=== PATIENT | female | born 1985 | race Caucasian/White ===

== ENCOUNTER → 2016-07-15 | Outpatient (CLI) | payer OTHER ==
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
--- NOTE | ~2016-07-15 | EE ---
Unit #: [id number] #: [id number] Patient: CAROLE BARROS [id number] [address] [address] [id number] O MR#: [id number] NAME: CAROLE BARROS : 1985 SEX: F STUDY DATE/TIME: 07/15/2016 UNIT: CEEG ROOM: STUDY DESCRIPTION: EEG Attending Physician: Jhon Noriega II., M.D. NEURODIAGNOSTICS REPORT EXAM EEG REASON FOR STUDY Seizures. Slidely TECHNICAL INFORMATION This is a routine EEG performed using the standard International 10-20 System of electrode placement. Photic stimulation was performed. Hyperventilation was also performed. REPORT Throughout the entire study, the best background rhythm seen is approximately 10 Hz. This rhythm is seen in both posterior head regions symmetrically and does attenuate to eye opening and closure. Photic stimulation was performed which did not elicit any epileptiform abnormalities. Hyperventilation was also performed which failed to reproduce any abnormal buildup. Throughout the entire study, there was no electrographic seizures recorded nor does there appear to be any clear independent epileptiform potential. There does appear to be some drowsiness. However, no sleep was recorded. INTERPRETATION This is a normal awake EEG. A normal EEG does not rule out the possibility of a seizure disorder. Clinical correlation is advised. Dictated by... Jhon Noriega II., M.D. GWS/gloria TD: 07/26/2016 09:14 JOB #: [id number] Unit #: [id number] #: [id number] Patient: CAROLE BARROS NEURODIAGNOSTICS REPORT Page 1 of 1 X NEURODIAGNOSTICS REPORT
== END | disposition home or self-care (01) ==
LOC: CEEG 07:35
DX: G40.909 Epilepsy, unspecified, not intractable, without status epilepticus (principal); J34.89 Other specified disorders of nose and nasal sinuses
CPT/HCPCS: 70553; 95816; A9577